=== PATIENT | female | born 1955 | race Caucasian/White ===

== ENCOUNTER → 2016-07-18 | Outpatient (CLI) | payer MEDICARE ==
[~2016-07-18] MED LIST: ABCT PO; ALBU8.5H2 INH; APRE30TA2 PO; AZIT250T81 PO; BUSP10TA95 PO; CLON1TAB3 PO; DOXY100C2 PO; DULO60CA58 PO; GABA600T2 PO; METH25VI24 IM; METH4TAB PO; MORP30TA5 PO; PANT40TA PO; SUCR1TAB PO; TIOT18CA2 INH
--- OUTSIDE RECORDS SUMMARY | 2016-07-18 09:20 | XMS REPORT ---
Author Author BRYCE MARCH [employer] Address Unknown Phone Unavailable Care Team Providers Care Traffic Engineering Technician Name Role Phone BRYCE MARCH CP Unavailable Allergies No Known Allergies Problems Problem Type Condition Code Onset Dates Condition Status Problem Other constipation K59.09 Active Problem Generalized anxiety disorder F41.1 Active Problem Raynauds disease without gangrene I73.00 Active Problem Seasonal affective disorder F39 Active Problem Chronic prescription opiate use Z79.899 Active Problem Gastroesophageal reflux disease, esophagitis presence not specified K21.9 Active Problem Psoriatic arthritis L40.50 Active Problem Tobacco use Z72.0 Active Problem Other polyneuropathy G62.89 Active Problem Chronic headaches R51 Active Problem COPD (chronic obstructive pulmonary disease) J44.9 Active Problem Other chronic pain G89.29 Active Medications Medication Code System Code Instructions Start Date End Date Status Dosage Clonazepam [facility] [place] [address]-19 1 MG July 05, 2014 take 0.5-1 tablet by Oral route 1 time per day PRN at HS for insomnia Results No Known Results Summary Purpose e[employer] Submission
--- NOTE | 2016-07-18 17:06 | Diagnostic Imaging Report ---
EXAMINATION: DEXA scan. INDICATION: Osteopenia. TECHNIQUE: Bone mineral density estimated based on dual energy radiography over the lumbar spine and femoral necks, was performed. FINDINGS: The lumbar spine T-score is -1.3 T score over the femoral neck is -1.3 on the left and -1.5 on the right side. IMPRESSION: Osteopenia. Dictated by: Dictated on workstation # [id number]
== END ==
LOC: RAD 09:17
PROVIDERS: ATTEND Family Medicine
DX: M85.80 Other specified disorders of bone density and structure, unspecified site (principal); R74.8 Abnormal levels of other serum enzymes; Z72.0 Tobacco use; Z91.89 Other specified personal risk factors, not elsewhere classified
CPT/HCPCS: 77080